=== PATIENT | male | born 1960 | race Two or more races ===

== ENCOUNTER 2024-09-12 09:02 | Emergency (ER) | payer MEDICAID, OTHER ==
[~2024-09-12] VITALS: Ht 182.9 cm; Wt 135.2 kg
[2024-09-12] MEDS: HYDROcodone-ACET 5/325MG TAB PO ONE (10:27)
[2024-09-12] MEDS: KETOROLAC TROMETH 60MG/2ML VIAL IM ONE (10:30)
[2024-09-12] MEDS: methylPREDNISolone SOD SUCC 125 MG/2 ML VL IM ONE (10:30)
--- NOTE | 2024-09-12 10:46 | ED.PDOC ---
Back pain HPI HPI Comments A 57-jwds-ter-male with a past medical history of hypertension, spinal stenosis with a chief complaint of back pain onset yesterday (09/11/24) around 20:00. Patient states he is currently experiencing RT sided low back pain radiating to RT foot for the past day, patient believes it is his sciatica nerve. He has taken Flexeril with no relief of symptoms. No other symptoms or modifying factors present at this time. Denies any history of cancer Denies fevers chills night sweats nausea vomiting unintentional weight loss Denies IV drug use history of HIV/TB Denies abdominal "tearing" pain Denies syncope Denies urinary incontinence or urinary changes Denies numbness tingling of the groin or inner thigh Chief Complaint: Back Pain Time Seen by MD: 10:00 Primary Care Provider: LUPE Le Notes: Medications ( ), Allergies Allergies: Coded Allergies: Ketorolac Tromethamine (Verified Allergy, Severe, 09/12/24) Information Source: Patient Mode of Arrival: Ambulatory Timing: Days Duration: Since onset Location of Back pain: (R) Lower back Radiates to: Anterior: (R) Foot Severity: Moderate Prehospital treatment: Other (flexerill) Quality: Sharp Onset: Spontaneous History of: Chronic Back Pain Modifying Factors: Nothing Past Medical History PAST MEDICAL HISTORY: HTN Past Medical History (Other): spinal stenosis Surgical History (Other): back surgery Family History Family History: Reviewed,noncontributory to illness, No family hx of Cancer, No family hx of DM, No family hx of Heart jayashree, No family hx of HTN, No family hx ofKidney jayashree, No family hx of Liver jayashree, No family hx of Lung jayashree, No family hx of Stroke Social History Smoker: Non-Smoker Alcohol: Denies ETOH Use Drugs: Denies Drug Use Lives In: Home All Other Systems: Reviewed and Negative (as per HPI) Physical Exam General Appearance: Normal HEENT: Normal ENT Inspection, Pharynx Normal, TMs Normal Neck: Full Range of Motion, Non-Tender, Normal, Normal Inspection Respiratory: Chest Non-Tender, Lungs Clear, No Accessory Muscle Use, No Respiratory Distress, Normal Breath Sounds Cardiovascular: No Edema, No JVD, No Murmur, No Gallop, Normal Peripheral Pulses, Regular Rate/Rhythm Breast Exam: Deferred Gastrointestinal: No Organomegaly, Non Tender, No Pulsatile Mass, Normal Bowel Sounds, Soft Genitalia: Deferred Pelvic: Deferred Rectal: Deferred Extremities: No calf tenderness, Normal capillary refill, No pedal edema Musculoskeletal : Location: Right Extremity Location: Back (Gross abnormality inspection. No midline tenderness. No bony step-offs on palpation. Localized right-sided lumbosacral TTP. And right straight leg raise test positive) Apperance: Normal Neurologic: Alert, executive director of nursing II-XII nml as Tested, No Motor Deficits, Normal Affect, Normal Mood, No Sensory Deficits Cerebellar Function: Normal Reflexes: Normal Skin: Dry, Normal Color, Warm Lymphatic: No Adenopathy Was a procedure done? Was a procedure done?: No Back Pain Differential Dx Differential Diagnosis: Musculoskeletal Pain X-Ray, Labs, Meds, VS Vital Signs Date Time Temp Pulse Resp B/P (MAP) Pulse Ox O2 Delivery O2 Flow Rate FiO2 09/12/24 09:22 77 09/12/24 09:15 97.5 76 21 162/99 (120) 97 97.5 Current Medications Medications (Trade) Dose Ordered Sig/Mike Route Start Time Stop Time Status Last Admin Acetaminophen/ Hydrocodone Bitart ([place] 5/325MG Tab) 1 tab ONCE ONCE PO 09/12/24 10:15 09/12/24 10:43 DC 09/12/24 10:27 Methylprednisolone Sodium Succinate (Solu Medrol) 125 mg ONCE ONCE IM 09/12/24 10:15 09/12/24 10:43 DC 09/12/24 10:30 X-Ray, Labs, Meds, VS Comment A 9-pjop-ind-male with a past medical history of hypertension, spinal stenosis with a chief complaint of back pain onset yesterday (09/11/24) around 20:00. Patient arrives alert and oriented, ABC's intact, afebrile, vital signs stable, saturating well in room air Patient was given: Methylprednisolone 125 mg IM, Ketorolac 60 mg IM, Hydrocodone 5/325 mg PO. Tolerated medications with no adverse reaction. Given patient's history and exam: Sciatica, cord compression, cauda equina, aortic dissection, Guillain-Ellisburg syndrome, epidural hematoma/abscess were all considered. Patient not toxic or ill-appearing. Vital signs within acceptable limits. Positive straight leg raise on exam with tenderness to the buttock consistent with sciatica. No vertebral point tenderness noted over the T or L- spine. No paraspinal muscle tenderness noted. No fever or IV drug use the. The differential for an acute vascular, neurologic, malignant, or infectious etiologies is much less likely given his/her presentation. The patient does not warrant a radiological exam at this time. Advised patient to try to take alternating Ibuprofen and Tylenol to help with inflammation of the sciatic nerve and surrounding tissues and should try to do low back stretches but also try to rest and avoid excessive sitting and bending. On reassessment, the patient's symptoms improved, and patient was able to ambulate without assistive devices. The patient will f/u with PMD to see if his/her symptoms jasper. An MRI may need to be ordered if the symptoms worsen or do not improve over time. The patient was counseled in regard to the diagnosis and management of the condition and verbalized understanding of this. The patient understands to return to the ER or seek immediate medical attention if the symptoms worsen or return. Additional MDM Review of External, Non-ED records: External records reviewed. Discussion with independent historian (EMS, family) history obtained from the patient/parents (if applicable) at bedside Chronic conditions affecting care: spinal stenosis Social determinants of health affecting care: None Consideration of admission (observation or admission): I considered escalation of care to admission for this patient, however given the reassuring workup, the patient is safe for outpatient management. Time of 1ST Reevaluation: 10:30 Reevaluation 1ST: Improved Patient Education/Counseling: Diagnosis, Treatment Family Education/Counseling: Diagnosis, Treatment Departure 1 Departure Time of Disposition: 11:18 Impression: Primary Impression: Lumbar radiculopathy Disposition: HOME / SELF CARE / HOMELESS Condition: Stable e-Prescriptions Methylprednisolone (Medrol Dosepak) 4 Mg Riaz 4 MG PO UD for 7 Days, #21 TAB 0 Refills UAD Prov: PETERSON NICKERSON ENRICHMENT SPECIALIST 09/12/24 Critical Care Note Critical Care Time?: No Stability Stability form required: No Heart Score Heart Score: Heart Score Response (Comments) Value History N/A 0 EKG N/A 0 Age N/A 0 Risk Factors N/A 0 Troponin N/A 0 Total 0 I personally scribed for PETERSON NICKERSON ENRICHMENT SPECIALIST ([email or web address]) on 09/12/24 at 10:45. Electronically submitted by Zee [email or web address]). I personally scribed for PETERSON NICKERSON NP ([email or web address]) on 09/12/24 at 10:49. Electronically submitted by Zee Lowe [email or web address]). PETERSON NICKERSON NP Sep 12, 2024 10:45
[2024-09-12] MEDS ORDERED: METH4PAK PO (11:19)
[2024-09-12 11:22] VITALS: BP 144/68; PULSE 98; RESP 18; TEMP 98.7; O2SAT 98
--- NOTE | 2024-09-13 10:57 | ECG ---
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
== END 2024-09-12 11:26 | disposition home or self-care (01) ==
LOC: ER 09:02
DX: M54.16 Radiculopathy, lumbar region (principal); I10 Essential (primary) hypertension; Z88.1 Allergy status to other antibiotic agents
CPT/HCPCS: 93005; 96372; 99283; J2919; J1885